=== PATIENT | female | born 1955 | race Caucasian/White ===

== ENCOUNTER 2021-08-22 07:55 | Outpatient (CLI) | payer BC | END 2021-08-22 07:56 | disposition home or self-care (01) | LOC: CSHMAMMO 07:55 | PROVIDERS: ATTEND Family Medicine | DX: Z12.31 Encounter for screening mammogram for malignant neoplasm of breast (principal); Z80.3 Family history of malignant neoplasm of breast | CPT/HCPCS: 77063; 77067 ==

== ENCOUNTER 2022-09-22 10:23 | Outpatient (CLI) | payer BC | END 2022-09-22 10:24 | disposition home or self-care (01) | LOC: CSHULT 10:23 | PROVIDERS: ATTEND Family Medicine | DX: R31.29 Other microscopic hematuria (principal); R93.422 Abnormal radiologic findings on diagnostic imaging of left kidney | CPT/HCPCS: 76770 ==

== ENCOUNTER 2022-09-22 13:03 | Outpatient (CLI) | payer BC | END 2022-09-22 13:04 | disposition home or self-care (01) | LOC: CSHMAMMO 13:03 | PROVIDERS: ATTEND Family Medicine | DX: Z12.31 Encounter for screening mammogram for malignant neoplasm of breast (principal); M81.0 Age-related osteoporosis without current pathological fracture; M85.851 Other specified disorders of bone density and structure, right thigh; M85.852 Other specified disorders of bone density and structure, left thigh; Z80.3 Family history of malignant neoplasm of breast | CPT/HCPCS: 77063; 77067; 77080 ==

== ENCOUNTER 2023-12-14 07:53 | Outpatient (CLI) | payer MEDICARE, BC | END 2023-12-14 07:54 | disposition home or self-care (01) | LOC: CSHMAMMO 07:53 | PROVIDERS: ATTEND Family Medicine | DX: Z12.31 Encounter for screening mammogram for malignant neoplasm of breast (principal); Z80.3 Family history of malignant neoplasm of breast | CPT/HCPCS: 77063; 77067 ==